=== PATIENT | female | born 1960 | race Caucasian/White ===

== ENCOUNTER 2021-08-20 01:13 | Emergency (ER) | payer SELFPAY ==
[~2021-08-20] VITALS: Ht 157.4 cm; Wt 72.2 kg
[2021-08-20] MEDS ORDERED: NS IV 1000 ML 1,000 ML IV SCH (01:30)
[2021-08-20] MEDS ORDERED: methylPREDNISolone 125 MG (Solu-MEDROL) VIAL IM ONE (01:30)
[2021-08-20] MEDS ORDERED: RT-ALBUTEROL/IPRATROPIUM 3 ML (DUONEB) VIAL INH ONE ×2 (01:30→03:15)
[2021-08-20] MEDS ORDERED: methylPREDNISolone 125 MG (Solu-MEDROL) VIAL IVP ONE (01:45)
--- NOTE | 2021-08-20 01:46 | ED General ---
General Chief Complaint: Respiratory Problems Stated Complaint: SOB History of Present Illness Date Seen by Provider: Aug 20, 2021 Time Seen by Provider: 01:43 Initial Comments Patient presenting to the emergency department for evaluation of worsening dyspnea over the past several days. Patient says that she has had cough congestion and chest tightness. She says the cough was initially productive of yellow sputum but now it is less productive. She denies fevers chills arthralgias or myalgias. She says she has no medical problems and takes no medications on a regular basis and does not smoke cigarettes. She says she does not have a primary care doctor. She is obviously dyspneic and has a room air oxygen saturation of 85%. Allergies and Home Medications Allergies Coded Allergies: No Known Drug Allergies (Unverified , 08/20/21) Patient Home Medication List Home Medication List Reviewed: Yes Albuterol Sulfate (Proair Hfa) 1 Puff Puff, 2 PUFF IH Q4H Prescribed by: RASHAWN CARRIZALES on 08/20/21310 Azelastine HCl (Azelastine HCl) 137 Mcg/0.137 Ml [place].pump, 137 MCG NS BID Prescribed by: RASHAWN CARRIZALES on 08/20/21310 Azithromycin (Azithromycin) 250 Mg Tablet, 250 MG PO UD Prescribed by: RASHAWN CARRIZALES on 08/20/21310 Prednisone (Prednisone) 20 Mg Tab, 60 MG PO DAILY Prescribed by: RASHAWN CARRIZALES on 08/20/21310 Review of Systems Review of Systems Constitutional: no symptoms reported EENTM: nose congestion Respiratory: cough, phlegm, short of breath Cardiovascular: other (Chest tightness) Gastrointestinal: no symptoms reported Musculoskeletal: no symptoms reported Skin: no symptoms reported Psychiatric/Neurological: No Symptoms Reported All Other Systems Reviewed Negative Unless Noted: Yes Physical Exam Vital Signs Vital Signs - First Documented 08/20/21 01:17 Temp 36.5 Pulse 80 Resp 26 B/P (MAP) 155/79 (104) Pulse Ox 95 O2 Delivery Nasal Cannula O2 Flow Rate 2.00 Capillary Refill : Height, Weight, BMI Height: '" Weight: lbs. oz. kg; BMI Method: General Appearance: Other (Dyspneic female) HEENT: PERRL/EOMI Neck: Supple Respiratory: Other (Diffuse wheezing in all lobes noted with decreased aeration of her lungs) Cardiovascular: Regular Rate, Rhythm Gastrointestinal: Non Tender, Soft Back: Normal Inspection Extremity: Normal Capillary Refill, No Pedal Edema Neurologic/Psychiatric: Alert, Oriented x3 Skin: Warm/Dry Focused Exam Lactate Level 08/20/21 01:27: Lactic Acid Level 1.21 Lactic Acid Level Laboratory Tests Test 08/20/21 01:27 Lactic Acid Level 1.21 MMOL/L (0.50-2.00) Progress/Results/Core Measures Suspected Sepsis SIRS Temperature: Pulse: Respiratory Rate: Laboratory Tests 08/20/21 01:27: White Blood Count 10.3 Blood Pressure / Mean: 08/20/21 01:27: Lactic Acid Level 1.21 Laboratory Tests 08/20/21 01:: Creatinine 0.86, INR Comment 1.0, Platelet Count 323, Total Bilirubin 0.4 Results/Orders Lab Results Laboratory Tests Test 08/20/21 01:25 08/20/21 01:27 08/20/21 02:15 Range/Units White Blood Count 10.3 4.3-11.0 10^3/uL Red Blood Count 5.35 H 3.80-5.11 10^6/uL Hemoglobin 15.3 11.5-16.0 g/dL Hematocrit 47 35-52 % Mean Corpuscular Volume 88 80-99 fL Mean Corpuscular Hemoglobin 29 25-34 pg Mean Corpuscular Hemoglobin Concent 32 32-36 g/dL Red Cell Distribution Width 12.4 10.0-14.5 % Platelet Count 323 130-400 10^3/uL Mean Platelet Volume 9.7 9.0-12.2 fL Neutrophils (%) (Auto) 53 42-75 % Lymphocytes (%) (Auto) 19 12-44 % Monocytes (%) (Auto) 12 0-12 % Eosinophils (%) (Auto) 16 H 0-10 % Basophils (%) (Auto) 1 0-10 % Neutrophils # (Auto) 5.4 1.8-7.8 X 10^3 Lymphocytes # (Auto) 1.9 1.0-4.0 X 10^3 Monocytes # (Auto) 1.2 H 0.0-1.0 X 10^3 Eosinophils # (Auto) 1.6 H 0.0-0.3 10^3/uL Basophils # (Auto) 0.1 0.0-0.1 10^3/uL Neutrophils % (Manual) 53 % Lymphocytes % (Manual) 16 % Monocytes % (Manual) 10 % Eosinophils % (Manual) 17 % Basophils % (Manual) 1 % Band Neutrophils 3 % Platelet Estimate NORMAL Blood Morphology Comment NORMAL Prothrombin Time 13.9 12.2-14.7 SEC INR Comment 1.0 0.8-1.4 Activated Partial Thromboplast Time 32 24-35 SEC D-Dimer 0.37 0.00-0.49 UG/ML Sodium Level 139 135-145 MMOL/L Potassium Level 4.0 3.6-5.0 MMOL/L Chloride Level 102 98-107 MMOL/L Carbon Dioxide Level 23 21-32 MMOL/L Anion Gap 14 5-14 MMOL/L Blood Urea Nitrogen 10 7-18 MG/DL Creatinine 0.86 0.60-1.30 MG/DL Estimat Glomerular Filtration Rate 67 BUN/Creatinine Ratio 12 Glucose Level 118 H 70-105 MG/DL Lactic Acid Level 1.21 0.50-2.00 MMOL/L Calcium Level 9.8 8.5-10.1 MG/DL Corrected Calcium 9.4 8.5-10.1 MG/DL Total Bilirubin 0.4 0.1-1.0 MG/DL Aspartate Amino Transf (AST/SGOT) 23 5-34 U/L Alanine Aminotransferase (ALT/SGPT) 13 0-55 U/L Alkaline Phosphatase 114 40-136 U/L Troponin I < 0.30 <0.30 NG/ML Pro-B-Type Natriuretic Peptide 18.1 <75.0 PG/ML Total Protein 8.0 6.4-8.2 GM/DL Albumin 4.5 3.2-4.5 GM/DL Blood Gas Puncture Site RT RADIAL Blood Gas Patient Temperature UNK Arterial Blood pH 7.42 7.37-7.43 Arterial Blood Partial Pressure CO2 32 L 35-45 MMHG Arterial Blood Partial Pressure O2 61 L 79-93 MMHG Arterial Blood HCO3 21 L 23-27 MMOL/L Arterial Blood Total CO2 21.8 21.0-31.0 MMOL/L Arterial Blood Oxygen Saturation 91 L 94-100 % Arterial Blood Base Excess -2.9 L -2.5-2.5 MMOL/L Abraham Test YES-POS Blood Gas Ventilator Setting NO Blood Gas Inspired Oxygen ROOM AIR My Orders Orders - RASHAWN CARRIZALES DO Iv/Invasive Line Insertion .IV start (08/20/21 01:24) Cbc With Automated Diff (08/20/21 01:24) Comprehensive Metabolic Panel (08/20/21 01:24) Fibrin Degradation Products (08/20/21:24) Chest 1 View Ap/Pa Only (08/20/21 01:24) Ekg Tracing (08/20/21:24) Troponin I Fs (08/20/21 01:24) Partial Thromboplastin Time (08/20/21:24) Probnp Fs (08/20/21:24) Protime With Inr (08/20/21:24) Lactic Acid Analyzer (08/20/21 01:24) Blood Culture (08/20/21 01:24) Albuterol/Ipra Inhalation Soln (Duoneb I (08/20/21 01:30) Methylprednisolone Sod Succ (Solu-Medrol (08/20/21 01:30) Ns Iv 1000 Ml (Sodium Chloride 0.9%) (08/20/21 01:30) Svn Small Volume Nebulizer (08/20/21 01:24) Arterial Blood Gas (08/20/21 01:24) Coronavirus Sars-Cov-2 So 2019 (08/20/21 01:24) Methylprednisolone Sod Succ (Solu-Medrol (08/20/21 01:45) Ed Iv/Invasive Line Start (08/20/21 01:46) Manual Differential (08/20/21 01:27) Blood Culture (08/20/21 02:02) Influenza A & B Antigens (08/20/21 02:54) Albuterol/Ipra Inhalation Soln (Duoneb I (08/20/21 03:15) Svn Small Volume Nebulizer (08/20/21 03:04) Albuterol/Ipra Inhalation Soln (Duoneb I (08/20/21 03:05) Medications Given in ED Current Medications Medications Dose Ordered Sig/Min Route Start Time Stop Time Status Last Admin Dose Admin Albuterol/ Ipratropium 3 ml ONCE ONCE INH 08/20/21 01:30 08/20/21 01:32 DC 08/20/21 01:33 3 ML Albuterol/ Ipratropium 3 ml ONCE ONCE INH 08/20/21 03:15 08/20/21 03:16 08/20/21 03:06 3 ML Methylprednisolone Sodium Succinate 125 mg ONCE ONCE IVP 08/20/21 01:45 08/20/21 01:46 DC 08/20/21 01:36 125 MG Vital Signs/I&O 08/20/21 01:17 Temp 36.5 Pulse 80 Resp 26 B/P (MAP) 155/79 (104) Pulse Ox 95 O2 Delivery Nasal Cannula O2 Flow Rate 2.00 Capillary Refill : Progress Note : Progress Note Patient has bronchospasm on exam with a very wide differential diagnosis i ncluding postnasal drip with bronchospasm versus pneumonia that could be bacterial bilateral and cardiac disease can also not be excluded. Patient does not wear oxygen at home. This oxygen requirement is new. I will check labs and imaging treat her symptoms and then reassess. Patient's x-ray did not show any obvious acute pathology and her labs are unremarkable for acute process. She has RSV Covid and flu test pending at this time. Patient has a room air oxygen saturation that ranges from 87 to 90% and we did a walking desaturation study that revealed that she is dyspneic and continues to have oxygen saturations in the upper 80s on room air. I recommended admission the hospital given her hypoxia. Patient refused admission stating that she feels much better after breathing treatments and steroids here in the emergency department and she would like to go home. I explained why I would like her to be admitted the hospital and that she could suffer serious consequences if she does not get proper care for her hypoxia. Patient accepted the risks of and disability by not taking my recommendations for admission and she signed out AGAINST MEDICAL ADVICE. I will prescribe her medications to take at home but advised her that she return to the emergency department immediately if she has any concerning signs or symptoms or if she changes her mind and would like to be admitted to the hospital. Patient walked out under her own power out of the emergency department. Departure Impression Primary Impression: Respiratory failure, acute Qualified Codes: J96.01 - Acute respiratory failure with hypoxia Additional Impression: Wheezing Disposition: AGAINST MEDICAL ADVICE Condition: Improved Departure-Patient Inst. Referrals: NO,LOCAL PHYSICIAN (PCP/Family) Primary Care Physician Patient Instructions: Acute Bronchitis, Adult (DC) Scripts Albuterol Sulfate (PROAIR HFA) 1 Puff Puff 2 PUFF IH Q4H, #1 EA 1 PUFF = 90 MCG Prov: RASHAWN CARRIZALES DO 08/20/21 Prednisone (Prednisone) 20 Mg Tab 60 MG PO DAILY for 4 Days, #12 TAB 0 Refills Prov: RASHAWN CARRIZALES DO 08/20/21 Azithromycin (Azithromycin) 250 Mg Tablet 250 MG PO UD, #6 TAB TAKE 2 TABLETS ON DAY ONE THEN TAKE 1 TABLET DAILY FOR FOUR MORE DAYS Prov: RASHAWN CARRIZALES DO 08/20/21 Azelastine HCl (Azelastine HCl) 137 Mcg/0.137 Ml [place].pump 137 MCG NS BID for 5 Days, #1 EA Prov: RASHAWN CARRIZALES DO 08/20/21 RASHAWN CARRIZALES DO Aug 20, 2021 01:46
[2021-08-20 02:13] LABS: FIBRIN DEGRADATION PRODUCTS 0.37 UG/ML (0.00-0.49); PROTHROMBIN TIME PATIENT 13.9 SEC (12.2-14.7)
[2021-08-20 02:25] LABS: HEMATOCRIT 47 % (35-52); HEMOGLOBIN 15.3 g/dL (11.5-16.0); MEAN CORPUSCULAR HEMOGLOBIN 29 pg (25-34); WHITE BLOOD COUNT 10.3 10^3/uL (4.3-11.0)
[2021-08-20 02:26] LABS: BASOPHILS # (AUTO) 0.1 10^3/uL (0.0-0.1); BASOPHILS % (AUTO) 1 % (0-10); EOSINOPHILS % (AUTO) 16 % (0-10); LYMPHOCYTES # (AUTO) 1.9 X 10^3 (1.0-4.0); LYMPHOCYTES % (AUTO) 19 % (12-44); MEAN CORPUSCULAR HGB CONC 32 g/dL (32-36); MEAN CORPUSCULAR VOLUME 88 fL (80-99); MEAN PLATELET VOLUME 9.7 fL (9.0-12.2); MONOCYTES # (AUTO) 1.2 X 10^3 (0.0-1.0); MONOCYTES % (AUTO) 12 % (0-12); NEUTROPHILS # (AUTO) 5.4 X 10^3 (1.8-7.8); NEUTROPHILS % (AUTO) 53 % (42-75); PLATELET COUNT 323 10^3/uL (130-400)
[2021-08-20 02:27] LABS: EOSINOPHILS # (AUTO) 1.6 10^3/uL (0.0-0.3)
[2021-08-20 02:30] LABS: ABG BASE EXCESS -2.9 MMOL/L (-2.5-2.5); ABG OXYGEN SATURATION 91 % (94-100); ABG PCO2 32 MMHG (35-45); ABG PH 7.42 (7.37-7.43); ABG PO2 61 MMHG (79-93); ABG TCO2 21.8 MMOL/L (21.0-31.0)
[2021-08-20 02:31] LABS: ALLENS TEST YES-POS; INSPIRED O2 ROOM AIR; VENTILATOR NO
[2021-08-20 02:32] LABS: ALKALINE PHOSPHATASE 114 U/L (40-136); BILIRUBIN,TOTAL 0.4 MG/DL (0.1-1.0); BUN/CREATININE RATIO 12; CALCIUM 9.8 MG/DL (8.5-10.1); CARBON DIOXIDE 23 MMOL/L (21-32); CHLORIDE 102 MMOL/L (98-107); CREATININE SERUM 0.86 MG/DL (0.60-1.30); GFR ESTIMATED 67; GLUCOSE 118 MG/DL (70-105); SODIUM 139 MMOL/L (135-145)
[2021-08-20 02:33] LABS: ALANINE AMINOTRANSFERASE 13 U/L (0-55); ALBUMIN 4.5 GM/DL (3.2-4.5)
[2021-08-20 02:50] LABS: BAND NEUTROPHILS 3 %; BASOPHILS % (MANUAL) 1 %; EOSINOPHILS % (MANUAL) 17 %; LYMPHOCYTES % (MANUAL) 16 %; MONOCYTES % (MANUAL) 10 %; NEUTROPHILS % (MANUAL) 53 %; PLATELET ESTIMATE NORMAL; RBC MORPH NORMAL
[2021-08-20] MEDS ORDERED: RT-ALBUTEROL/IPRATROPIUM 3 ML (DUONEB) VIAL ONE (03:05)
[2021-08-20] MEDS ORDERED: AZEL137S11 NS (03:11)
[2021-08-20] MEDS ORDERED: PRD20T PO (03:11)
[2021-08-20] MEDS ORDERED: RT-ALBUINH IH (03:11)
[2021-08-20] MEDS ORDERED: AZIT250T12 PO (03:11)
[2021-08-20 03:16] VITALS: BP 125/93
--- NOTE | 2021-08-20 05:37 | Diagnostic Imaging Report ---
INDICATION: Cough and shortness of breath. Frontal chest obtained at 0130 a.m. There is no prior study for comparison. Heart and mediastinal silhouette are normal in appearance. There is hyperinflation compatible with COPD. There is no focal infiltrate or pneumothorax or pleural fluid. IMPRESSION: COPD changes with no acute process in the chest. Dictated by: Dictated on workstation # [id number]
== END 2021-08-20 03:16 | disposition left against medical advice (07) ==
LOC: ER FS 01:16
DX: J96.00 Acute respiratory failure, unspecified whether with hypoxia or hypercapnia (principal); Z20.822 Contact with and (suspected) exposure to COVID-19
CPT/HCPCS: 36415; 71045; 80053; 82805; 83605; 83880; 84484; 85007; 85027; 85379; 85610; 85730; 87040; 87636; 87804; 93005